=== PATIENT | male | born 1980 | race Caucasian/White ===

== ENCOUNTER 2023-11-15 13:10 | Emergency (ER) | payer SELFPAY ==
[2023-11-15 13:15] VITALS: BP 148/105; PULSE 95; RESP 18; TEMP 37.4; O2SAT 99
== END 2023-11-15 14:26 | disposition left against medical advice (07) ==
PROVIDERS: Emergency Provider Student in an Organized Health Care Education/Training Program; PCP Nurse Practitioner Family
DX: Z53.21 Procedure and treatment not carried out due to patient leaving prior to being seen by health care provider (principal)